=== PATIENT | female | born 1985 | race Caucasian/White ===

== ENCOUNTER → 2018-10-01 | Outpatient (CLI) | payer OTHER | LOC: COL.PUL 11:20 | DX: J45.909 Unspecified asthma, uncomplicated (principal) ==

== ENCOUNTER → 2019-06-04 | Outpatient (CLI) | payer OTHER | LOC: COL.PUL 08-20 08:00 → COL.RAD 09:54 | DX: J45.909 Unspecified asthma, uncomplicated (principal) ==

== ENCOUNTER 2021-10-29 14:06 | Emergency (ER) | payer OTHER ==
[~2021-10-29] VITALS: Ht 152.4 cm; Wt 75.0 kg
[2021-10-29 14:29] VITALS: BP 118/70; TEMP 98.7
[2021-10-29] MEDS ORDERED: PROZAC60 MG (14:33)
[2021-10-29] MEDS ORDERED: PROAIR HFA0.09 MG/AC IH (14:33)
[2021-10-29 15:35] VITALS: PULSE 65
== END 2021-10-29 15:35 | disposition home or self-care (01) ==
LOC: COL.ER 14:06
DX: S06.0X9A Concussion with loss of consciousness of unspecified duration, initial encounter (principal); F41.9 Anxiety disorder, unspecified; F32.A Depression, unspecified; Z79.899 Other long term (current) drug therapy; W54.1XXA Struck by dog, initial encounter; Y93.K9 Activity, other involving animal care

== ENCOUNTER 2022-03-05 18:53 | Emergency (ER) | payer OTHER ==
[~2022-03-05] VITALS: Ht 152.4 cm; Wt 73.6 kg
[~2022-03-05 18:53] MED LIST: PROAIR HFA0.09 MG/AC IH; PROZAC60 MG
[2022-03-05 19:52] LABS: BASO % 0.4 % (0.0-2.0); EOS % 0.2 % (0.0-4.0); GRAN # 8.8 K/mm3 (1.4-6.5); HEMATOCRIT 40.6 % (37.0-47.0); HEMOGLOBIN 13.6 g/dl (12.5-16.0); LYMPH # 0.6 K/mm3 (1.2-3.4); LYMPH % 5.6 % (20.0-51.0); MEAN CELL VOLUME 84 fl (80.0-100.0); MEAN CORPUSCULAR HEMOGLOBIN 28 pg (27-31); MEAN CORPUSCULAR HGB CONC 34 g/dl (33.0-37.0); MEAN PLATELET VOLUME 10.4 fl (7.4-10.4); MONO # 0.8 K/mm3 (0.1-0.6); MONO % 7.4 % (1.7-9.3); PLATELET COUNT 297 K/mm3 (130-400); RED BLOOD COUNT 4.85 M/mm3 (4.10-5.30); REDCELL DISTRIBUTION WIDTH-CV 14.2 % (11.5-14.5)
[2022-03-05 19:53] LABS: COLLECTION METHOD CLEAN CATCH
[2022-03-05 19:59] LABS: MUCOUS Present (NOT PRESENT); PH 6 (5-8); URINE APPEARANCE Hazy (CLEAR/HAZY); URINE BACTERIA None Seen /hpf (NONE SEEN); URINE BILIRUBIN Negative (NEGATIVE); URINE BLOOD Negative (NEGATIVE); URINE COLOR Yellow (YELLOW); URINE GLUCOSE Negative (NEGATIVE); URINE KETONE Trace (NEGATIVE); URINE LEUKOCYTE ESTERASE Trace (NEGATIVE); URINE NITRATE Negative (NEGATIVE); URINE PROTEIN(semi-quant) Negative (NEGATIVE); URINE UROBILINOGEN Negative (NEGATIVE)
[2022-03-05 20:05] LABS: ALBUMIN 4.1 gm/dL (3.5-5.0); BILIRUBIN,TOTAL 0.5 mg/dL (0.2-1.2); CALCIUM 9.3 mg/dL (8.4-10.2); CREATININE, serum 0.75 mg/dL (0.57-1.11); POTASSIUM 3.7 mmol/L (3.5-4.5); TOTAL PROTEIN 7.5 gm/dL (6.2-8.1)
[2022-03-05] MEDS ORDERED: ZOFRAN 4MG T4 MG/TAB PO (20:45)
[2022-03-05] MEDS ORDERED: BENTYL 20MG20 MG/TAB PO (20:45)
[2022-03-05 20:56] VITALS: BP 118/78; PULSE 72
== END 2022-03-05 20:56 | disposition home or self-care (01) ==
LOC: COL.ER 18:53
PROVIDERS: Emergency Medicine
DX: R10.12 Left upper quadrant pain (principal); Z32.02 Encounter for pregnancy test, result negative; Z28.311 Partially vaccinated for COVID-19
CPT/HCPCS: J1200; J1885; J2765; J7030